=== PATIENT | female | born 1980 | race Caucasian/White ===

== ENCOUNTER 2019-02-23 20:18 | Emergency (ER) | payer MEDICAID ==
[~2019-02-23] VITALS: Ht 157.5 cm; Wt 56.2 kg
[2019-02-23] MEDS ORDERED: Augmentin 875-1 EACH PO (21:52)
== END 2019-02-23 22:17 | disposition home or self-care (01) ==
LOC: ER 20:18
DX: S61.452A Open bite of left hand, initial encounter (principal); W54.0XXA Bitten by dog, initial encounter; F17.200 Nicotine dependence, unspecified, uncomplicated
CPT/HCPCS: 12002; 90471; 90714; 99283-25